=== PATIENT | male | born 1955 | race American Indian/Alaskan Native ===

== ENCOUNTER 2016-11-22 12:50 | Emergency (ER) | payer OTHER ==
[2016-11-22 13:22] VITALS: BP 126/74
[2016-11-22] MEDS ORDERED: TORADOL IM ONE (16:29)
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
== END 2016-11-22 16:58 | disposition home or self-care (01) ==
LOC: ED 12:50
DX: S46.912A Strain of unspecified muscle, fascia and tendon at shoulder and upper arm level, left arm, initial encounter (principal); I10 Essential (primary) hypertension; V89.2XXA Person injured in unspecified motor-vehicle accident, traffic, initial encounter; Y93.89 Activity, other specified; Y99.8 Other external cause status; Y92.89 Other specified places as the place of occurrence of the external cause
CPT/HCPCS: 96372; 99282; J1885

== ENCOUNTER 2019-03-20 14:12 | Emergency (ER) | payer OTHER ==
[2019-03-20 14:45] VITALS: BP 139/79
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
== END 2019-03-20 16:41 | disposition home or self-care (01) ==
LOC: ED 14:12
DX: M54.5 Low back pain (principal); V89.2XXA Person injured in unspecified motor-vehicle accident, traffic, initial encounter; Y93.89 Activity, other specified; Y92.488 Other paved roadways as the place of occurrence of the external cause; Y99.8 Other external cause status
CPT/HCPCS: 99282